=== PATIENT | male | born 1960 | race Caucasian/White ===

== ENCOUNTER 2020-04-16 19:27 | Emergency (ER) | payer OTHER ==
[~2020-04-16] VITALS: Ht 167.6 cm; Wt 61.2 kg
[~2020-04-16 19:27] MED LIST: AMOCLA875 PO; ASPI325; ASPI81CH; ASPI81CH PO; ASPI81EC PO; AZIT250 PO; CLOT1TC TOP; FISH OIL 1,2001 EAC1 PO; HYDACE5 PO; IBUP400 PO; IBUP600 PO; INDO25 PO; MONT10T PO; NAPR500 PO; NAPR550 PO; OXYACE5T PO; SERT50 PO; SIMV10 PO; SULTRIDS PO
== END 2020-04-16 21:45 | disposition home or self-care (01) ==
LOC: ER 19:27
DX: S61.012A Laceration without foreign body of left thumb without damage to nail, initial encounter (principal); I10 Essential (primary) hypertension; I25.2 Old myocardial infarction; M10.9 Gout, unspecified; F32.9 Major depressive disorder, single episode, unspecified; Z79.82 Long term (current) use of aspirin; Z86.73 Personal history of transient ischemic attack (TIA), and cerebral infarction without residual deficits; W57.XXXA Bitten or stung by nonvenomous insect and other nonvenomous arthropods, initial encounter
CPT/HCPCS: 12002; 99282-25

== ENCOUNTER → 2022-02-17 | Outpatient (CLI) | payer OTHER ==
[2022-02-17 14:14] LABS: Stool Occult Bld Immuno 1 Negative (NEGATIVE)
== END | disposition home or self-care (01) ==
LOC: LAB 10:30 → LAB SHORT 10:30
PROVIDERS: Family Medicine
DX: Z12.11 Encounter for screening for malignant neoplasm of colon (principal)
CPT/HCPCS: G0328

== ENCOUNTER 2023-01-17 23:26 | Emergency (ER) | payer OTHER ==
[~2023-01-17] VITALS: Ht 167.6 cm; Wt 64.4 kg
[2023-01-18] MEDS ORDERED: OXAYDO5 M1 PO (01:18)
[2023-01-18] MEDS ORDERED: IBUP800 PO (01:18)
== END 2023-01-18 01:38 | disposition home or self-care (01) ==
LOC: ER 23:26
DX: S22.42XA Multiple fractures of ribs, left side, initial encounter for closed fracture (principal); W18.30XA Fall on same level, unspecified, initial encounter; Z79.899 Other long term (current) drug therapy; Z79.82 Long term (current) use of aspirin; I25.2 Old myocardial infarction; M10.9 Gout, unspecified
CPT/HCPCS: 71101; 93005; 93010; 96374; 96375; 99284-25; A9270; J1170; J1885

== ENCOUNTER → 2023-06-16 | Outpatient (CLI) | payer OTHER ==
[~2023-06-16] MED LIST changes: +IBUP800 PO; +OXAYDO5 M1 PO
[2023-06-16 13:18] LABS: CHOL/HDL RATIO 1.8; Cholesterol 157 mg/dL (50-200); HDL Cholesterol 86 mg/dL (>39); LDL/HDL RATIO 0.6; Low Density Lipoprotein Chol 55 mg/dL (0-110); Triglycerides 78 mg/dL (30-160); Very Low Density Lipoprot Chol 15 mg/dL (6-32)
[2023-06-16 13:33] LABS: BASOPHILS ABSOLUTE AUTO 0.08 K/mm3 (0.00-0.23); BASOPHILS PERCENT AUTO 1 % (0-2); EOSINOPHILS ABSOLUTE AUTO 0.57 K/mm3 (0.00-0.68); EOSINOPHILS PERCENT AUTO 8 % (0-6); Hemoglobin 15.4 g/dL (13.5-17.5); IMMATURE GRAN ABSOLUTE AUTO 0.02 K/mm3 (0.00-0.10); IMMATURE GRAN PERCENT AUTO 0 % (0-1); LYMPHOCYTES ABSOLUTE AUTO 1.43 K/mm3 (0.84-5.20); LYMPHOCYTES PERCENT AUTO 20 % (21-46); MONOCYTES ABSOLUTE AUTO 0.63 K/mm3 (0.16-1.47); MONOCYTES PERCENT AUTO 9 % (4-13); Mean Corpuscular HGB 31.3 pg (26.0-34.0); Mean Corpuscular HGB Conc 33.5 g/dL (31.5-36.5); Mean Corpuscular Volume 94 fL (80-100); Mean Platelet Volume 11.4 fL (9.1-12.4); NEUTROPHILS ABSOLUTE AUTO 4.42 K/mm3 (1.96-9.15); NEUTROPHILS PERCENT AUTO 62 % (41-73); Platelet Count 115 K/mm3 (150-400); RDW Coefficient Variation 13.3 % (11.7-14.2); Red Blood Cell Count 4.92 M/mm3 (4.30-5.90); White Blood Cell Count 7.15 K/mm3 (4.00-11.30)
== END | disposition home or self-care (01) ==
LOC: LAB SHORT 09:48 → LAB 09:48
PROVIDERS: Family Medicine
DX: Z00.00 Encounter for general adult medical examination without abnormal findings (principal); Z12.5 Encounter for screening for malignant neoplasm of prostate
CPT/HCPCS: 80061; 83036; 85025; G0103

== ENCOUNTER → 2023-06-30 | Outpatient (CLI) | payer OTHER ==
[2023-06-30 17:39] LABS: Albumin, Blood 4.1 g/dL (3.4-5.0); Albumin/Globulin Ratio 1.1 (0.8-1.8); Bilirubin, Total 1.3 mg/dL (0.1-1.0); Bun/Creatinine Ratio 9.1 (12.0-20.0); Calcium, Blood 9.5 mg/dL (8.5-10.1); Creatinine, Blood 0.66 mg/dL (0.60-1.20); Globulin, Blood 3.7 g/dL (2.2-4.0); Potassium, Blood 4.5 mmol/L (3.5-5.5); Total Protein, Blood 7.8 g/dL (6.4-8.2)
== END | disposition home or self-care (01) ==
LOC: LAB 10:00 → LAB SHORT 10:00
PROVIDERS: Family Medicine
DX: Z00.00 Encounter for general adult medical examination without abnormal findings (principal)
CPT/HCPCS: 80053

== ENCOUNTER 2025-02-07 19:02 | Emergency (ER) | payer OTHER ==
[~2025-02-07] VITALS: Ht 167.6 cm; Wt 63.5 kg
[2025-02-07 19:50] LABS: BASOPHILS ABSOLUTE AUTO 0.05 K/mm3 (0.00-0.23); BASOPHILS PERCENT AUTO 1 % (0-2); EOSINOPHILS ABSOLUTE AUTO 0.23 K/mm3 (0.00-0.68); EOSINOPHILS PERCENT AUTO 2 % (0-6); Hematocrit 42.4 % (37.0-53.0); Hemoglobin 14.9 g/dL (13.5-17.5); IMMATURE GRAN PERCENT AUTO 1 % (0-1); LYMPHOCYTES ABSOLUTE AUTO 2.19 K/mm3 (0.84-5.20); LYMPHOCYTES PERCENT AUTO 21 % (21-46); MONOCYTES ABSOLUTE AUTO 1.05 K/mm3 (0.16-1.47); MONOCYTES PERCENT AUTO 10 % (4-13); Mean Corpuscular HGB 31.4 pg (26.0-34.0); Mean Corpuscular HGB Conc 35.1 g/dL (31.5-36.5); Mean Corpuscular Volume 89 fL (80-100); NEUTROPHILS PERCENT AUTO 65 % (41-73); RDW Coefficient Variation 13.8 % (11.7-14.2); RDW Standard Deviation 45.3 fL (35.1-46.3); Red Blood Cell Count 4.75 M/mm3 (4.30-5.90); White Blood Cell Count 10.42 K/mm3 (4.00-11.30)
[2025-02-07 20:00] LABS: Albumin, Blood 3.9 g/dL (3.4-5.0); Bilirubin, Total 2.9 mg/dL (0.1-1.0); Bun/Creatinine Ratio 28.3 (12.0-20.0); Calcium, Blood 9.2 mg/dL (8.5-10.1); Creatinine, Blood 0.67 mg/dL (0.60-1.20); Globulin, Blood 3.9 g/dL (2.2-4.0); Total Protein, Blood 7.8 g/dL (6.4-8.2)
[2025-02-07] MEDS ORDERED: Morphine Sulfate 4 MG/1 ML Injection IV ONE (20:45)
[2025-02-07] MEDS ORDERED: Ondansetron HCl 2 MG / ML 2ML Vial IV ONE (20:45)
[2025-02-07] MEDS ORDERED: Ketorolac Tromethamine 30mg Vial IV ONE (20:45)
[2025-02-07 21:30] VITALS: BP 125/77
[2025-02-07] MEDS ORDERED: LIDO700A20 TOP (21:31)
[2025-02-07] MEDS ORDERED: IBUP600 PO (21:31)
== END 2025-02-07 21:49 | disposition home or self-care (01) ==
LOC: ER 19:02
PROVIDERS: Physician Assistant
DX: M54.50 Low back pain, unspecified (principal); I10 Essential (primary) hypertension; E78.5 Hyperlipidemia, unspecified; I25.2 Old myocardial infarction; J44.9 Chronic obstructive pulmonary disease, unspecified; M19.90 Unspecified osteoarthritis, unspecified site; Z79.82 Long term (current) use of aspirin; Z79.899 Other long term (current) drug therapy
CPT/HCPCS: 71046; 80053; 85025; 93005; 93010; 96374; 96375; 99284-25; J1885; J2270; J2405

== ENCOUNTER 2025-03-22 13:29 | Inpatient (IN) | payer OTHER ==
[2025-03-22] VITALS (12 sets, daily range): BP systolic 117–156; BP diastolic 70–88
[~2025-03-22] VITALS: Ht 167.6 cm; Wt 63.5 kg
[~2025-03-22 13:29] MED LIST changes: +LIDO700A20 TOP
[2025-03-22] MEDS ORDERED: NS 1,000 ML IV SCH ×2 (14:15→17:35)
[2025-03-22] MEDS ORDERED: Ondansetron HCl 2 MG / ML 2ML Vial IV ONE (14:15)
[2025-03-22] MEDS ORDERED: Ipratropium/Albuterol SulF 2.5-0.5MG/3 ML Amp INH ONE (14:15)
[2025-03-22] MEDS ORDERED: HYDROmorphone HCl/Pf 1MG SYR IV ONE (14:15)
[2025-03-22 14:28] LABS: BASOPHILS ABSOLUTE AUTO 0.03 K/mm3 (0.00-0.23); BASOPHILS PERCENT AUTO 0 % (0-2); EOSINOPHILS ABSOLUTE AUTO 0.11 K/mm3 (0.00-0.68); EOSINOPHILS PERCENT AUTO 1 % (0-6); Hematocrit 44.8 % (37.0-53.0); Hemoglobin 15.7 g/dL (13.5-17.5); IMMATURE GRAN ABSOLUTE AUTO 0.06 K/mm3 (0.00-0.10); IMMATURE GRAN PERCENT AUTO 0 % (0-1); LYMPHOCYTES ABSOLUTE AUTO 1.16 K/mm3 (0.84-5.20); LYMPHOCYTES PERCENT AUTO 9 % (21-46); MONOCYTES ABSOLUTE AUTO 0.71 K/mm3 (0.16-1.47); MONOCYTES PERCENT AUTO 5 % (4-13); Mean Corpuscular HGB 30.7 pg (26.0-34.0); Mean Corpuscular Volume 88 fL (80-100); Mean Platelet Volume 10.1 fL (9.1-12.4); NEUTROPHILS ABSOLUTE AUTO 11.46 K/mm3 (1.96-9.15); NEUTROPHILS PERCENT AUTO 85 % (41-73); Platelet Count 207 K/mm3 (150-400); RDW Coefficient Variation 14.6 % (11.7-14.2); RDW Standard Deviation 47.5 fL (35.1-46.3); Red Blood Cell Count 5.11 M/mm3 (4.30-5.90); White Blood Cell Count 13.53 K/mm3 (4.00-11.30)
[2025-03-22 14:46] LABS: Albumin, Blood 3.4 g/dL (3.4-5.0); Albumin/Globulin Ratio 0.8 (0.8-1.8); Bilirubin, Total 1.5 mg/dL (0.1-1.0); Bun/Creatinine Ratio 24.2 (12.0-20.0); Calcium, Blood 9.6 mg/dL (8.5-10.1); Creatinine, Blood 0.7 mg/dL (0.60-1.20); Potassium, Blood 3.8 mmol/L (3.5-5.5); Total Protein, Blood 7.4 g/dL (6.4-8.2)
[2025-03-22] MEDS ORDERED: Piperacillin/Tazobactam Sod 3.375 GM in NS 100 ML IV ONE (15:15)
[2025-03-22] MEDS ORDERED: Bupivacaine 0.5% HCl 5 MG/ML 30MLVIAL ONE (16:53)
[2025-03-22] MEDS ORDERED: FentaNYL Citrate 50 MCG/ML 5 ML Injection ONE (17:01)
[2025-03-22] MEDS ORDERED: propofoL 20 ML IV ONE (17:01)
[2025-03-22] MEDS ORDERED: Oxymetazoline 0.05% Nasal Relief Spray 15mL BTL ONE (17:06)
[2025-03-22] MEDS ORDERED: Ondansetron 4 MG TAB PO PRN (17:35)
[2025-03-22] MEDS ORDERED: Ondansetron HCl 2 MG / ML 2ML Vial ONE (17:44)
[2025-03-22] MEDS ORDERED: Ondansetron HCl 2 MG / ML 2ML Vial IV PRN (18:05)
[2025-03-22] MEDS ORDERED: SuccINYLCHOLINE Chloride 100 MG/5 ML 5MLSYR ONE (18:18)
[2025-03-22] MEDS ORDERED: Lidocaine HCl 2% Jelly 120MG/6ML SYR (20MG PER ML) ONE (18:18)
[2025-03-22] MEDS ORDERED: Rocuronium Bromide 10 MG/ML 5ML Injection IV ONE (18:18)
[2025-03-22] MEDS ORDERED: Sugammadex Sodium 200 MG/2ML SDV (100 MG/ML) ONE ×2 (18:40→18:41)
[2025-03-22] MEDS ORDERED: Fluconazole 400MG/Iso-Sod 200M 200 ML IV ONE (19:30)
[2025-03-23] MEDS ORDERED: Piperacillin/Tazobactam Sod 3.375 GM in NS 100 ML IV SCH
[2025-03-23] MEDS ORDERED: HYDROmorphone HCl/Pf 1MG SYR IV PRN (02:45)
[2025-03-23] MEDS ORDERED: Naloxone HCl 0.4MG / ML 1ML Vial IV PRN (02:45)
[2025-03-23 04:16] VITALS: BP 120/75
--- NOTE | 2025-03-23 04:54 | NUR ---
SHIFT SUMMARY A/OX3, CALLS APPROPRIATELY. POD #1 ABD LAP FOR DUODENAL ULCER. O2 >92% ON 2L NC. DARBY PATENT AND DRAINING TO GRAVITY. TELE SR IN THE S. 4 LAP SITES TO ABD, IRA DRAINING. NG TO LIS. PRN DILAUDID GIVEN FOR PAIN. NO ACUTE CHANGES AT THIS TIME.
[2025-03-23 05:50] LABS: BASOPHILS ABSOLUTE AUTO 0.01 K/mm3 (0.00-0.23); BASOPHILS PERCENT AUTO 0 % (0-2); EOSINOPHILS PERCENT AUTO 0 % (0-6); Hematocrit 36.8 % (37.0-53.0); Hemoglobin 12.5 g/dL (13.5-17.5); IMMATURE GRAN ABSOLUTE AUTO 0.05 K/mm3 (0.00-0.10); IMMATURE GRAN PERCENT AUTO 1 % (0-1); LYMPHOCYTES ABSOLUTE AUTO 0.98 K/mm3 (0.84-5.20); LYMPHOCYTES PERCENT AUTO 10 % (21-46); MONOCYTES ABSOLUTE AUTO 0.97 K/mm3 (0.16-1.47); MONOCYTES PERCENT AUTO 10 % (4-13); Mean Corpuscular HGB 30.6 pg (26.0-34.0); Mean Corpuscular Volume 90 fL (80-100); Mean Platelet Volume 10.2 fL (9.1-12.4); NEUTROPHILS ABSOLUTE AUTO 7.79 K/mm3 (1.96-9.15); NEUTROPHILS PERCENT AUTO 80 % (41-73); Platelet Count 173 K/mm3 (150-400); RDW Standard Deviation 50.4 fL (35.1-46.3); Red Blood Cell Count 4.08 M/mm3 (4.30-5.90)
[2025-03-23] MEDS ORDERED: Pantoprazole Sodium 40 MG Injection IV SCH (06:00)
[2025-03-23 06:15] LABS: Albumin, Blood 2.4 g/dL (3.4-5.0); Albumin/Globulin Ratio 0.8 (0.8-1.8); Bilirubin, Total 1.7 mg/dL (0.1-1.0); Bun/Creatinine Ratio 20.2 (12.0-20.0); Creatinine, Blood 0.64 mg/dL (0.60-1.20); Globulin, Blood 3.2 g/dL (2.2-4.0); Potassium, Blood 3.9 mmol/L (3.5-5.5); Total Protein, Blood 5.6 g/dL (6.4-8.2)
[2025-03-23 07:26] VITALS: BP 116/65
[2025-03-23 07:38] VITALS: BP 153/96
[2025-03-23] MEDS ORDERED: Atorvastatin 10 MG Tab PO SCH (09:00)
[2025-03-23] MEDS ORDERED: Aspirin 81 MG Chew PO SCH (09:00)
[2025-03-23] MEDS ORDERED: Enoxaparin 40 MG/0.4 ML SYR SC SCH (09:00)
[2025-03-23 14:19] LABS: Hemoglobin 12.2 g/dL (13.5-17.5)
[2025-03-23 14:31] VITALS: BP 110/69
--- NOTE | 2025-03-23 17:12 | NUR ---
SHIFT SUMMARY PAIN CONTROLLED WELL. INCISION SITES WNL. IRA DRAIN COMPRESSED. DRESSING CHANGED. NG TUBE MODERATE DISCHARGE ON LIS, DARK OUTPUT. ENCOURAGED TO DEEP BREATH. ON 2L O2 NC. UP TO CHAIR FOR A FEW HOURS TODAY. DENIES PASSING GAS.
[2025-03-23] MEDS ORDERED: Fluconazole 100MG/Iso-Sod 50ML 50 ML IV SCH (18:00)
[2025-03-23 20:25] VITALS: BP 110/70
[2025-03-24] VITALS (7 sets, daily range): BP systolic 113–165; BP diastolic 59–85
--- NOTE | 2025-03-24 05:48 | NUR ---
SHIFT SUMMARY: NO ACUTE CHANGES DURING SHIFT. UPON SHIFT START, NG TUBE TAPE WAS DISLODGED AND PROVIDER ORDERED XRAY TO ASSESS PLACEMENT. PLACEMENT WAS VERIFIED AND SECUREMENT DEVICE PLACED. IRA DRAIN TO RIGHT ABDOMEN WITH MODERATE SEROUS OUTPUT. PT WITH DARBY CATHETER THAT IS PATENT, NG TUBE TO LIS WITH DARK OUTPUT. PRN DILAUDID GIVEN FOR PAIN. 4X LAP SITES CDI. PT REPORTS PASSING GAS.
[2025-03-24] MEDS ORDERED: DEXTROMETHORPHAN/BENZOCAINE 1 EACH LOZENGE MT PRN (08:15)
[2025-03-24] MEDS ORDERED: ATOR40TA PO (09:34)
[2025-03-24] MEDS ORDERED: LORA10ER PO (09:34)
[2025-03-24] MEDS ORDERED: TART CHERRY400 MG PO (09:35)
[2025-03-24] MEDS ORDERED: GILTUSS TR PO (09:36)
[2025-03-24] MEDS ORDERED: Aspir 8181 MG PO (09:36)
[2025-03-24] MEDS ORDERED: FISH OIL 1,4001 EAC2 PO (09:38)
[2025-03-24] MEDS ORDERED: 8 HOUR ACETAMI650 MG PO (09:38)
[2025-03-24 11:14] LABS: Magnesium, Blood 1.8 mg/dL (1.6-2.4); Phosphorus, Blood 2.4 mg/dL (2.5-4.9)
[2025-03-24] MEDS ORDERED: TPN Consult Notification XX ONE (11:35)
[2025-03-24 15:43] LABS: Albumin, Blood 2.2 g/dL (3.4-5.0); Albumin/Globulin Ratio 0.6 (0.8-1.8); Bilirubin, Total 1.5 mg/dL (0.1-1.0); Bun/Creatinine Ratio 31.1 (12.0-20.0); Calcium, Blood 8.5 mg/dL (8.5-10.1); Creatinine, Blood 0.61 mg/dL (0.60-1.20); Globulin, Blood 3.4 g/dL (2.2-4.0); Potassium, Blood 3.7 mmol/L (3.5-5.5); Total Protein, Blood 5.6 g/dL (6.4-8.2)
[2025-03-24 15:48] LABS: BASOPHILS ABSOLUTE AUTO 0.04 K/mm3 (0.00-0.23); BASOPHILS PERCENT AUTO 0 % (0-2); EOSINOPHILS ABSOLUTE AUTO 0.04 K/mm3 (0.00-0.68); EOSINOPHILS PERCENT AUTO 0 % (0-6); Hematocrit 32.8 % (37.0-53.0); Hemoglobin 10.7 g/dL (13.5-17.5); IMMATURE GRAN ABSOLUTE AUTO 0.05 K/mm3 (0.00-0.10); IMMATURE GRAN PERCENT AUTO 1 % (0-1); LYMPHOCYTES ABSOLUTE AUTO 1.05 K/mm3 (0.84-5.20); LYMPHOCYTES PERCENT AUTO 12 % (21-46); MONOCYTES ABSOLUTE AUTO 0.87 K/mm3 (0.16-1.47); MONOCYTES PERCENT AUTO 10 % (4-13); Mean Corpuscular HGB 30.6 pg (26.0-34.0); Mean Corpuscular HGB Conc 32.6 g/dL (31.5-36.5); Mean Corpuscular Volume 94 fL (80-100); Mean Platelet Volume 10.9 fL (9.1-12.4); NEUTROPHILS ABSOLUTE AUTO 7.03 K/mm3 (1.96-9.15); NEUTROPHILS PERCENT AUTO 77 % (41-73); Platelet Count 164 K/mm3 (150-400); RDW Coefficient Variation 15.1 % (11.7-14.2); RDW Standard Deviation 52.6 fL (35.1-46.3); White Blood Cell Count 9.08 K/mm3 (4.00-11.30)
[2025-03-24] MEDS ORDERED: Parenteral Electolytes 40 ML,Multivitamins 10 ML,ZINC SULF/CUSO4 P-HYD/MN/CR/SE 1 ML in... IV SCH (17:00)
--- NOTE | 2025-03-24 17:51 | NUR ---
SHIFT SUMMARY PAIN CONTROLLED WELL. NG TUBE, DARK BROWN w/RED TINGE OUTPUT. IRA DRAIN w/SS OUTPUT. UP TO CHAIR FOR A FEW HOURS TODAY. ABLE TO URINATE AFTER DARBY REMOVED. ON 1L O2 NC w/CONTINOUS PULSE OX MONITORING. INCISION SITES WNL. ABDOMEN SOFT, PASSING GAS, DENIES NAUSEA. PPN STARTED. CURRENTLY RESTING IN BED.
--- NOTE | 2025-03-24 18:32 | NUR ---
CHANGE IN STATUS PT FOUND TO HAVE BRIGHT RED BLOOD IN NGT BUT ONLY SCANT IN TUBING. ABD SOFT & PT DOESN'T REPORT INCREASE IN ABD PAIN. IRA FLUID STILL YELLOW. DR CARDOSO CALLED & DISCUSSED. PLAN TO HOLD CEPACOL RED LOZENGES & MONITOR CLOSELY. CALL w/ ANY CHANGES OR CONCERNS.
--- NOTE | 2025-03-24 19:25 | NUR ---
CONTINUED CHANGE IN STATUS 100 MLS OF RED FLUID INCREASE IN CANISTER & FOUND IN TUBING. PT BEGAN DRY HEAVING & BECAME DIAPHORETIC. ABD NOW TENDER BUT SOFT. IRA UNCHANGED. DR CARDOSO NOTIFIED & WILL PLACE ORDERS.
[2025-03-24] MEDS ORDERED: Lactated Ringer's 1,000 ML IV ONE (19:30)
--- NOTE | 2025-03-24 19:53 | NUR ---
1944: LAB AT BEDSIDE TO DRAW STAT LABS. 1953: TO IMAGING WITH RADIOLOGY STAFF ON [facility]. PER DR WALKER DUNAWAY TO GO WITH SUCTION CLAMPED TO NG TUBE.
[2025-03-24 20:13] LABS: Hematocrit 32.8 % (37.0-53.0); Hemoglobin 10.8 g/dL (13.5-17.5); Mean Corpuscular HGB 30.5 pg (26.0-34.0); Mean Corpuscular HGB Conc 32.9 g/dL (31.5-36.5); Mean Corpuscular Volume 93 fL (80-100); Mean Platelet Volume 10.1 fL (9.1-12.4); Platelet Count 268 K/mm3 (150-400); RDW Coefficient Variation 14.9 % (11.7-14.2); RDW Standard Deviation 50.8 fL (35.1-46.3); Red Blood Cell Count 3.54 M/mm3 (4.30-5.90); White Blood Cell Count 10.88 K/mm3 (4.00-11.30)
[2025-03-24 20:31] LABS: Albumin, Blood 2.2 g/dL (3.4-5.0); Albumin/Globulin Ratio 0.6 (0.8-1.8); Bilirubin, Total 1.4 mg/dL (0.1-1.0); Bun/Creatinine Ratio 32.5 (12.0-20.0); Calcium, Blood 8.9 mg/dL (8.5-10.1); Creatinine, Blood 0.52 mg/dL (0.60-1.20); Globulin, Blood 3.6 g/dL (2.2-4.0); Potassium, Blood 3.4 mmol/L (3.5-5.5); Total Protein, Blood 5.8 g/dL (6.4-8.2)
[2025-03-24 20:36] LABS: International Normalized Ratio 0.97; Prothrombin Time Results 10.4 Sec (9.7-11.5)
--- NOTE | 2025-03-24 20:48 | NUR ---
CAPO RN AT BEDSIDE TO PLACE MIDLINE
--- NOTE | 2025-03-24 20:53 | NUR ---
DR CARDOSO CALLED TO REVIEW CT SCAN AND FOR UPDATE ON PT STATUS. NGT FLUSHED W/60ML STERILE WATER AND ADVANCED APPX [address] CARDOSO REQ. NGT CONT TO DRAIN THICK DARK RED DNRG. PT VS, LABS, OUTPUT AND MEDS REV. PLAN FOR NEW ORDER FOR COMPAZINE AND TO CONT W/CURRENT TX PLAN. PRIMARY RN UPDATED.
[2025-03-24] MEDS ORDERED: Prochlorperazine Edisylate 10 mg Vial IV PRN (21:25)
[2025-03-25] VITALS (10 sets, daily range): BP systolic 123–161; BP diastolic 67–78
[2025-03-25 00:29] LABS: Hematocrit 25.1 % (37.0-53.0); Hemoglobin 8.2 g/dL (13.5-17.5)
--- NOTE | 2025-03-25 00:49 | NUR ---
LABS: DR CARDOSO UPDATED ON PT H&H AND VITALS. PLAN TO CONT W/CURRENT TX PLAN AND UPDATE FOR ANY CHANGES/CONCERNS.
--- NOTE | 2025-03-25 01:41 | NUR ---
PT SLEEPING WITH UNLABORED BREATHING; CALL LIGHT WITHIN REACH.
--- NOTE | 2025-03-25 04:30 | NUR ---
RN TO ROOM; PT SLEEPING ON LEFT SIDE WITH EQUAL, UNLABORED BREATHING. CALL LIGHT WITHIN REACH.
[2025-03-25 05:04] LABS: BASOPHILS ABSOLUTE AUTO 0.01 K/mm3 (0.00-0.23); BASOPHILS PERCENT AUTO 0 % (0-2); EOSINOPHILS ABSOLUTE AUTO 0.01 K/mm3 (0.00-0.68); EOSINOPHILS PERCENT AUTO 0 % (0-6); Hematocrit 23.9 % (37.0-53.0); Hemoglobin 7.9 g/dL (13.5-17.5); IMMATURE GRAN ABSOLUTE AUTO 0.07 K/mm3 (0.00-0.10); IMMATURE GRAN PERCENT AUTO 1 % (0-1); LYMPHOCYTES ABSOLUTE AUTO 0.77 K/mm3 (0.84-5.20); LYMPHOCYTES PERCENT AUTO 8 % (21-46); MONOCYTES ABSOLUTE AUTO 0.71 K/mm3 (0.16-1.47); MONOCYTES PERCENT AUTO 7 % (4-13); Mean Corpuscular HGB 30.6 pg (26.0-34.0); Mean Corpuscular HGB Conc 33.1 g/dL (31.5-36.5); Mean Corpuscular Volume 93 fL (80-100); Mean Platelet Volume 9.4 fL (9.1-12.4); NEUTROPHILS ABSOLUTE AUTO 8.18 K/mm3 (1.96-9.15); NEUTROPHILS PERCENT AUTO 84 % (41-73); Platelet Count 254 K/mm3 (150-400); RDW Coefficient Variation 14.5 % (11.7-14.2); RDW Standard Deviation 49.1 fL (35.1-46.3); Red Blood Cell Count 2.58 M/mm3 (4.30-5.90); White Blood Cell Count 9.75 K/mm3 (4.00-11.30)
[2025-03-25 05:17] LABS: Magnesium, Blood 1.6 mg/dL (1.6-2.4); Triglycerides 114 mg/dL (30-160)
--- NOTE | 2025-03-25 05:39 | NUR ---
SHIFT SUMMARY: PT WITH INCREASED OUTPUT FROM NG TUBE THROUGHOUT SHIFT. OUTPUT IS DARK RED. DR CARDOSO IS AWARE, STAT CT COMPLETED, NG TUBE ADVANCED AND SECURED, LR BOLUS COMPLETED. POWERGLIDE PLACED TO WALLY. NEW 20G IV PLACED TO RIGHT WRIST. RIGHT HAND WITH SOME EDEMA, COBAN REMOVED FROM WRIST; RADIAL PULSE FELT. LAP SITES TO ABDOMEN WITH GLUE REMAIN CDI, IRA SITE LEAKING WITH MULTIPLE DRESSING CHANGES. NG TUBE TO LIS WITH NO VENT PER SURGERY; POSITIONAL AND LEAKING CAN OCCUR. FULL GOWN AND LINEN CHANGE DURING SHIFT. PT WITH Q6 HOUR GLUCOSE CHECKS; NO HYPOGLYCEMIA RESULTS DURING NOC SHIFT. PT MEDICATED FOR NAUSEA AND PAIN PER ORDERS DURING SHIFT. PT WITH EPISODES OF DIAPHORESIS. PT PPN STARTED 03/24/2025 DURING DAY SHIFT. PT VOIDING WITH URINAL.
[2025-03-25] MEDS ORDERED: NS 500 ML IV SCH (08:05)
[2025-03-25 08:50] LABS: International Normalized Ratio 0.96; Prothrombin Time Results 10.3 Sec (9.7-11.5)
[2025-03-25] MEDS ORDERED: Ipratropium/Albuterol SulF 2.5-0.5MG/3 ML Amp INH PRN (11:30)
[2025-03-25] MEDS ORDERED: Pantoprazole Sodium 40 MG in NS 50 ML IV SCH (15:25)
--- NOTE | 2025-03-25 15:25 | NUR ---
DR. ANTOINE IN ROOM AT 1050 AND PT SIGNED BLOOD CONSENT. BLOOD TRANSFUSION STARTED AT ABOUT 1110, SEE CHARTING
--- NOTE | 2025-03-25 15:27 | NUR ---
EMESIS: AT ABOUT 1300, PT VOMITED 200ML OF MAROON COLORED BLOOD, NO CLOTS NOTED. DR. ANTOINE AND DR. GONZALEZ NOTIFIED. THIS RN FLUSHED NGT WITH 50ML OF WATER AND FLUSHED SUMP LUMEN WITH AIR PER ORDER. MORE DARK BLOOD OUTPUT FROM NGT AFTER FLUSHING AND PT REPORTED LESS NAUSEATED. PT ALSO MEDICATED FOR NAUSEA AND PAIN DURING THIS TIME. NGT IS SECURE AND REMAINS ON LIS
--- NOTE | 2025-03-25 15:44 | NUR ---
REPORT PASSED TO LUIS RUFF. BEDSIDE ROUNDING AND BLOOD TRANSFUSION COMPLETE AT ABOUT 1510. PT TOLERATED WELL.
[2025-03-25 15:48] LABS: Albumin/Globulin Ratio 0.7 (0.8-1.8); Bilirubin, Total 1.3 mg/dL (0.1-1.0); Bun/Creatinine Ratio 24.7 (12.0-20.0); Calcium, Blood 8.4 mg/dL (8.5-10.1); Creatinine, Blood 0.53 mg/dL (0.60-1.20); Potassium, Blood 3.2 mmol/L (3.5-5.5)
[2025-03-25 16:50] LABS: Hematocrit 26.2 % (37.0-53.0); Hemoglobin 9.1 g/dL (13.5-17.5)
--- NOTE | 2025-03-25 17:30 | NUR ---
SHIFT SUMMARY THIS RN ASSUMED CARE AT APPROX 1530. PATIENT ALERT AND ORIENTED X4. COMMUNICATES NEEDS EFFECTIVELY. VSS. POD 3 ROBOTIC LAP DIAGNOSTIC FOR SMALL BOWEL PERF. ON 1L VIA NC, SATs >90%. RECEIVING PRN BREATHING TREATMENTS FROM RT FOR EPISODES OF WHEEZING. CONTINUOUS PULSE OX IN PLACE. NG TUBE IN PLACE W/ THICK DARK RED OUTPUT TO LIS. NO FURTHER EPISODES OF EMESIS (SEE SOO RNs PREVIOUS NOTE). IRA DRAIN TO RLQ WITH YELLOW DRAINAGE. X3 LAP SITES C/D/I. ABD DISTENDED, SOFT. TENDER TO PALPATION. TPN INFUSING PER EMAR. PROTONIX GTT STARTED THIS EVENING. RECEIVED X1 UNIT OF PRBCs - HGB STABLE AT 9.1. VOIDING. CALL LIGHT IN REACH.
[2025-03-26] VITALS (13 sets, daily range): BP systolic 112–190; BP diastolic 66–101
--- NOTE | 2025-03-26 01:30 | NUR ---
TELEMETRY EVENT. THIS RN RECEIVED T/C FROM TELEMETRY THAT PT HAD A HEART RATE OF 150 BPM. THIS RN WAS WITH ANOTHER PATIENT. SUGAR CANE PLANTER MACHINE OPERATOR LIZZ NIETO WENT TO ASSESS PATIENT, SUGAR CANE PLANTER MACHINE OPERATOR REPORTED BACK TO THIS RN THAT PT ASYMPTOMATIC AND VSS.
--- NOTE | 2025-03-26 04:39 | NUR ---
SHIFT SUMMARY NOC. PT A/OX4, LAP SITES C/D/I, IRA DRAIN PRODUCING YELLOW DRAINAGE, EXTERIOR DRESSING CHANGED THIS SHIFT. PT MEDICATED FOR ABDOMINAL PAIN X1. NG TUBE PATENT AND PRODUCING DARK RED OUTPUT. PT VOIDING URINE. PT MAKES NEEDS KNOWN, CALL LIGHT IN REACH.
[2025-03-26 06:35] LABS: Bun/Creatinine Ratio 27.1 (12.0-20.0); Calcium, Blood 8.2 mg/dL (8.5-10.1); Creatinine, Blood 0.55 mg/dL (0.60-1.20); Magnesium, Blood 1.7 mg/dL (1.6-2.4); Phosphorus, Blood 2.2 mg/dL (2.5-4.9); Potassium, Blood 2.9 mmol/L (3.5-5.5)
[2025-03-26 08:15] LABS: BASOPHILS ABSOLUTE AUTO 0.01 K/mm3 (0.00-0.23); BASOPHILS PERCENT AUTO 0 % (0-2); EOSINOPHILS ABSOLUTE AUTO 0.42 K/mm3 (0.00-0.68); EOSINOPHILS PERCENT AUTO 6 % (0-6); Hemoglobin 7.5 g/dL (13.5-17.5); IMMATURE GRAN ABSOLUTE AUTO 0.04 K/mm3 (0.00-0.10); IMMATURE GRAN PERCENT AUTO 1 % (0-1); LYMPHOCYTES ABSOLUTE AUTO 1.25 K/mm3 (0.84-5.20); LYMPHOCYTES PERCENT AUTO 17 % (21-46); MONOCYTES PERCENT AUTO 13 % (4-13); Mean Corpuscular HGB 30.5 pg (26.0-34.0); Mean Corpuscular HGB Conc 34.1 g/dL (31.5-36.5); Mean Corpuscular Volume 89 fL (80-100); Mean Platelet Volume 10.9 fL (9.1-12.4); NEUTROPHILS ABSOLUTE AUTO 4.75 K/mm3 (1.96-9.15); NEUTROPHILS PERCENT AUTO 64 % (41-73); Platelet Count 223 K/mm3 (150-400); RDW Coefficient Variation 14.5 % (11.7-14.2); RDW Standard Deviation 47.5 fL (35.1-46.3); Red Blood Cell Count 2.46 M/mm3 (4.30-5.90); White Blood Cell Count 7.47 K/mm3 (4.00-11.30)
[2025-03-26] MEDS ORDERED: NS 250 ML IV PRN (12:05)
[2025-03-26] MEDS ORDERED: Potassium Phosphate Dibasic 30 MM in Dextrose 5% 500 ML IV STA (12:17)
--- NOTE | 2025-03-26 13:38 | NUR ---
UNABLE TO LOCATE RADIAL BP CUFF. PT UP TO CHAIR AFTER BED BATH. USED URINAL. PT DENIES ANY BLOOD TRANSFUSION REACTION S/S. TOLERATING WELL. LUNG SOUNDS REMAIN WHEEZY. CALL LIGHT WITHIN REACH. CURRENTLY ATTEMPTING TO LOCATE RADIAL CUFF TO ACCURATELY ASSESS BP.
--- NOTE | 2025-03-26 15:26 | NUR ---
AGREE WITH METAL FURNITURE REPAIRER SHIFT ASSESSMENT.
[2025-03-26] MEDS ORDERED: [UNRECOGNIZED DRUG - NUTRITION] IV SCH (17:00)
--- NOTE | 2025-03-26 17:10 | NUR ---
SHIFT SUMMARY NO ACUTE CHANGES. PT RECIEVED ONE UNIT OF PRBCS AND JASON WELL. NGT TO LIS WITH DARK BROWN DRAINAGE IN CANISTER. IRA DRAIN DRESSING CHANGED X1 AND HAS SEROUS OUTPUT. PT UP TO CHAIR WITH 1 MODERATE ASSIST FOR CORD MANAGEMENT. VSS AND IS ALERT AND OREINTED. LAP SITES C/D/I. USING URINAL TO VOID. PPN, PROTONIX, IV ABX INFUSING PER ORDERS. NO TELE EVENTS AND REMAINS IN NSR. USES CALL LIGHT APPROPRIATELY.
--- NOTE | 2025-03-27 00:05 | NUR ---
PHYSICIAN CONTACT PT WITH 700 ML OF DARK SANGINOUS OUTPUT, SECURITY OFFICERS AND GUARDS PROVIDER NOTIFIED. NEW ORDERS FOR REPEAT H&H PLACED.
[2025-03-27 00:34] VITALS: BP 161/86
[2025-03-27 00:55] LABS: Hematocrit 26.3 % (37.0-53.0); Hemoglobin 9.2 g/dL (13.5-17.5)
[2025-03-27 04:32] VITALS: BP 170/94
[2025-03-27 05:27] LABS: Hematocrit 26.1 % (37.0-53.0); Hemoglobin 9.1 g/dL (13.5-17.5); Mean Corpuscular HGB 29.8 pg (26.0-34.0); Mean Corpuscular HGB Conc 34.9 g/dL (31.5-36.5); Mean Corpuscular Volume 86 fL (80-100); Mean Platelet Volume 9.4 fL (9.1-12.4); Platelet Count 350 K/mm3 (150-400); RDW Coefficient Variation 15.7 % (11.7-14.2); RDW Standard Deviation 48.5 fL (35.1-46.3); Red Blood Cell Count 3.05 M/mm3 (4.30-5.90); White Blood Cell Count 11.46 K/mm3 (4.00-11.30)
[2025-03-27 05:52] LABS: Albumin, Blood 2.1 g/dL (3.4-5.0); Albumin/Globulin Ratio 0.6 (0.8-1.8); Bilirubin, Total 0.7 mg/dL (0.1-1.0); Calcium, Blood 7.9 mg/dL (8.5-10.1); Creatinine, Blood 0.49 mg/dL (0.60-1.20); Globulin, Blood 3.5 g/dL (2.2-4.0); Magnesium, Blood 1.6 mg/dL (1.6-2.4); Phosphorus, Blood 3.8 mg/dL (2.5-4.9); Total Protein, Blood 5.6 g/dL (6.4-8.2)
[2025-03-27 06:03] LABS: BASOPHILS PERCENT MAN 0 % (0-2); EOSINOPHILS ABSOLUTE MAN 1.26 K/mm3 (0.00-0.68); EOSINOPHILS PERCENT MAN 11 % (0-6); LYMPHOCYTES PERCENT MAN 14 % (21-46); METAMYELOCYTE ABSOLUTE MAN 0.11 K/mm3 (0.00-0.00); METAMYELOCYTE PERCENT MAN 1 % (0-0); MONOCYTES ABSOLUTE MAN 0.68 K/mm3 (0.16-1.47); MONOCYTES PERCENT MAN 6 % (4-13); NEUTROPHILS ABSOLUTE MAN 7.79 K/mm3 (1.96-9.15); SEG NEUTROPHILS PERCENT MAN 68 % (41-73); TOTAL CELLS COUNTED 100
--- NOTE | 2025-03-27 06:37 | NUR ---
SHIFT SUMMARY A/OX3, CALLS APPROPRIATELY. NG TO LIS WITH 1100 ML OF DARK RED OUTPUT. HGB OF 9.1 THIS AM. IRA TO RLQ. DENIES PAIN OR SOB. CONTINUES TO BE HYPERTENSIVE. PROTONIX GTT RUNNING.
[2025-03-27 07:35] VITALS: BP 138/77
[2025-03-27] MEDS ORDERED: Potassium Chl 20MEQ/Water100ML 100 ML IV SCH (09:20)
[2025-03-27] MEDS ORDERED: TPN Consult Notification XX ONE (14:10)
[2025-03-27 15:07] VITALS: BP 154/90
[2025-03-27] MEDS ORDERED: Parenteral Electolytes 40 ML,Potassium Phosphate Dibasic 30 MM,Multivitamins 10 ML,ZINC... IV SCH (17:00)
--- NOTE | 2025-03-27 17:44 | NUR ---
PT ALERT AND ORIENTED X4, RA, SR IN 90S ON TELE. VERY LITTLE OUTPUT FROM NG TUBE T/O SHIFT, ONE EPISODE OF EMESIS PT STATED FROM COUGHING AND GAGGING ON NG TUBE. SEVERAL LOOSE BLACK BMS THIS SHIFT, AWARE. 1PA TO BATHROOM OR BSC D/T LINES. NG TUBE REMOVED AT 1730 PER ORDER, PT TOLERATED WELL. DIET ADVANCED TO CLEAR LIQUID DIET. PT CALLS APPROPRIATELY AND ABLE TO MAKE NEEDS KNOWN.
[2025-03-27 19:36] VITALS: BP 143/77
--- NOTE | 2025-03-28 04:47 | NUR ---
MIMEOGRAPHER SUMMARY PT AAOX4 AND PLEASANT. HAS DENIED PAIN MOST OF THE NIGHT AND HAS NOT REQUIRED ANY PAIN MEDICATION. HAD A VERY LARGE LIQUID BM AT START OF SHIFT, MAROON/BROWN IN COLOR. IRA DRAIN TO [facility] PUT OUT 10 ML OF YELLOW DRAINAGE. DRESSING TO IRA DRAIN CHANGED. PT CONTINUES IV TPN AND PROTONIX DRIP ORDERED. MEDICATED ONCE FOR NAUSEA WITH ZOFRAN RIGHT AFTER PT HAD LARGE BM BUT HAS DENIED NAUSEA SINCE. VSS, WILL CONTINUE TO MONITOR.
[2025-03-28 05:48] VITALS: BP 161/84
[2025-03-28 06:28] LABS: BASOPHILS ABSOLUTE AUTO 0.04 K/mm3 (0.00-0.23); BASOPHILS PERCENT AUTO 0 % (0-2); EOSINOPHILS PERCENT AUTO 9 % (0-6); Hematocrit 27.1 % (37.0-53.0); Hemoglobin 9.1 g/dL (13.5-17.5); IMMATURE GRAN ABSOLUTE AUTO 0.15 K/mm3 (0.00-0.10); IMMATURE GRAN PERCENT AUTO 1 % (0-1); LYMPHOCYTES ABSOLUTE AUTO 1.98 K/mm3 (0.84-5.20); LYMPHOCYTES PERCENT AUTO 15 % (21-46); MONOCYTES ABSOLUTE AUTO 1.19 K/mm3 (0.16-1.47); MONOCYTES PERCENT AUTO 9 % (4-13); Mean Corpuscular HGB 29.9 pg (26.0-34.0); Mean Corpuscular HGB Conc 33.6 g/dL (31.5-36.5); Mean Corpuscular Volume 89 fL (80-100); Mean Platelet Volume 9.5 fL (9.1-12.4); NEUTROPHILS ABSOLUTE AUTO 9.09 K/mm3 (1.96-9.15); NEUTROPHILS PERCENT AUTO 67 % (41-73); Platelet Count 463 K/mm3 (150-400); RDW Coefficient Variation 15.9 % (11.7-14.2); RDW Standard Deviation 51.6 fL (35.1-46.3); Red Blood Cell Count 3.04 M/mm3 (4.30-5.90); White Blood Cell Count 13.65 K/mm3 (4.00-11.30)
[2025-03-28 06:43] LABS: Bun/Creatinine Ratio 32.1 (12.0-20.0); Calcium, Blood 8.3 mg/dL (8.5-10.1); Creatinine, Blood 0.56 mg/dL (0.60-1.20); Magnesium, Blood 1.9 mg/dL (1.6-2.4); Potassium, Blood 3.9 mmol/L (3.5-5.5)
[2025-03-28 07:27] VITALS: BP 149/78
[2025-03-28 14:24] VITALS: BP 161/86
--- NOTE | 2025-03-28 14:39 | NUR ---
IRA DRAIN DRESSING CHANGED.
[2025-03-28] MEDS ORDERED: Pantoprazole Sodium 40 MG Injection IV SCH (16:30)
--- NOTE | 2025-03-28 19:29 | NUR ---
SHIFT SUMMARY PT IS POD#6. PT HAD MULTIPLE LIQUID BOWEL MOVEMENTS TODAY. HE IS TOLERATING SMALL AMOUNTS OF CLEAR LIQUIDS. PT IS A SBA FOR TRANSFERS. PT IS STILL GETTING PARENTERAL NUTRITION. BEDSIDE REPORT GIVEN TO SURINDER SMITH.
[2025-03-28 20:05] VITALS: BP 162/80
[2025-03-29] VITALS (13 sets, daily range): BP systolic 128–148; BP diastolic 59–83
[2025-03-29 05:49] LABS: BASOPHILS ABSOLUTE AUTO 0.06 K/mm3 (0.00-0.23); BASOPHILS PERCENT AUTO 1 % (0-2); EOSINOPHILS ABSOLUTE AUTO 1.18 K/mm3 (0.00-0.68); EOSINOPHILS PERCENT AUTO 9 % (0-6); Hematocrit 25.2 % (37.0-53.0); Hemoglobin 8.5 g/dL (13.5-17.5); IMMATURE GRAN ABSOLUTE AUTO 0.17 K/mm3 (0.00-0.10); IMMATURE GRAN PERCENT AUTO 1 % (0-1); LYMPHOCYTES ABSOLUTE AUTO 2.11 K/mm3 (0.84-5.20); LYMPHOCYTES PERCENT AUTO 16 % (21-46); MONOCYTES PERCENT AUTO 9 % (4-13); Mean Corpuscular HGB 30.4 pg (26.0-34.0); Mean Corpuscular HGB Conc 33.7 g/dL (31.5-36.5); Mean Corpuscular Volume 90 fL (80-100); Mean Platelet Volume 9.6 fL (9.1-12.4); NEUTROPHILS ABSOLUTE AUTO 8.46 K/mm3 (1.96-9.15); NEUTROPHILS PERCENT AUTO 64 % (41-73); Platelet Count 548 K/mm3 (150-400); RDW Coefficient Variation 15.7 % (11.7-14.2); White Blood Cell Count 13.18 K/mm3 (4.00-11.30)
[2025-03-29 06:04] LABS: Bun/Creatinine Ratio 25.8 (12.0-20.0); Calcium, Blood 8.3 mg/dL (8.5-10.1); Creatinine, Blood 0.58 mg/dL (0.60-1.20); Magnesium, Blood 1.7 mg/dL (1.6-2.4); Phosphorus, Blood 3.4 mg/dL (2.5-4.9); Potassium, Blood 4.2 mmol/L (3.5-5.5)
--- NOTE | 2025-03-29 06:22 | NUR ---
NOC SUMMARY- PAIN MANAGED WELL. PT WAS ABLE TO SLEEP WELL THIS SHIFT. PT HAS BEEN VOIDING WELL. PT HAD LIQUID BM THIS AM, DARK GREEN. PT IRA DRAINING SEROUS FLUID. IRA SITE STILL WEEPING, DRESSING CHANGED THIS AM. PT HAD A EPISODE OF N/V. PT VOMITED UP 25 ML OF ANGELITA BLOOD. PT DENIES HAVING ANY PREVIOUS EPISODES OF ANGELITA BLOOD. PT TX FOR N/V PER MAR WITH RELIEF. NO TELE EVENTS REPORTED. PT RESTING QUIETLY AND IN NO DISTRESS. CALL LIGHT IN REACH.
[2025-03-29 12:07] LABS: Hematocrit 22.6 % (37.0-53.0); Hemoglobin 7.5 g/dL (13.5-17.5)
--- NOTE | 2025-03-29 17:32 | NUR ---
SHIFT SUMMARY PT IS A/Ox4. HAS BEEN ABLE TO MAKE NEEDS KNOWN WITH CALL LIGHT T/O SHIFT. PT HAS HAD MULTIPLE LIQUID BOWEL MOVEMENTS THAT ARE MAROON IN COLOR. DR. ARANGO WAS NOTIFIED AND AN ABD CT WAS ORDERED, CT CAME BACK CLEAR. HEMOGLOBIN DROPPED TO 7.5, DR. ARANGO ORDERED 1 UNIT OF PACKED RBCS WHICH IS CURRENTLY INFUSING. PT IS RESTING IN BED, BED IS IN LOWEST POSITION AND CALL LIGHT IS IN REACH. REPORTS NO ACUTE NEEDS AT THIS TIME.
--- NOTE | 2025-03-29 17:42 | NUR ---
PLEASE SEE STUDENT NOTES FOR SHIFT SUMMARY THIS PACKAGING SALES HAS REVIEWED AND AGREES.
--- NOTE | 2025-03-29 18:09 | NUR ---
IRA DRESSING CHANGED AT 1805. DRESSING WAS SATURATED WITH SEROUS FLUID.
[2025-03-29 23:13] LABS: Hematocrit 22.9 % (37.0-53.0); Hemoglobin 7.8 g/dL (13.5-17.5)
[2025-03-30 04:41] VITALS: BP 126/63
[2025-03-30 05:13] LABS: BASOPHILS ABSOLUTE AUTO 0.05 K/mm3 (0.00-0.23); BASOPHILS PERCENT AUTO 0 % (0-2); EOSINOPHILS ABSOLUTE AUTO 1.01 K/mm3 (0.00-0.68); EOSINOPHILS PERCENT AUTO 9 % (0-6); Hematocrit 23.2 % (37.0-53.0); Hemoglobin 7.9 g/dL (13.5-17.5); IMMATURE GRAN ABSOLUTE AUTO 0.18 K/mm3 (0.00-0.10); IMMATURE GRAN PERCENT AUTO 2 % (0-1); LYMPHOCYTES ABSOLUTE AUTO 1.88 K/mm3 (0.84-5.20); LYMPHOCYTES PERCENT AUTO 16 % (21-46); MONOCYTES ABSOLUTE AUTO 0.91 K/mm3 (0.16-1.47); MONOCYTES PERCENT AUTO 8 % (4-13); Mean Corpuscular HGB 30.2 pg (26.0-34.0); Mean Corpuscular HGB Conc 34.1 g/dL (31.5-36.5); Mean Corpuscular Volume 89 fL (80-100); Mean Platelet Volume 9.4 fL (9.1-12.4); NEUTROPHILS ABSOLUTE AUTO 7.43 K/mm3 (1.96-9.15); NEUTROPHILS PERCENT AUTO 65 % (41-73); Platelet Count 492 K/mm3 (150-400); RDW Coefficient Variation 15.9 % (11.7-14.2); RDW Standard Deviation 51.7 fL (35.1-46.3); Red Blood Cell Count 2.62 M/mm3 (4.30-5.90); White Blood Cell Count 11.46 K/mm3 (4.00-11.30)
--- NOTE | 2025-03-30 05:27 | NUR ---
METAL EXTRUSION SUPERVISOR SUMMARY PT HAS HAD 2 ADDITIONAL MAROON LIQUID STOOLS TONIGHT. NO NAUSEA OR VOMITING TONIGHT. HGB AFTER BLOOD TRANSFUSION WAS 7.8 AND THEN INCREASED TO 7.9 WITH MORNING LABS. RUQ IRA DRAIN CONTINUES TO OUTPUT SMALL JOE OF SEROUS DRAINAGE. PT MEDICATED TWICE WITH DILAUDID 1 MG IV FOR ABD PAIN. PT HAS BEEN ON ROOM AIR THROUGH THE NIGHT AND O2 SATS MAINTAINING >90%. VSS, WILL CONTINUE TO MONITOR.
[2025-03-30 05:36] LABS: Bun/Creatinine Ratio 20.5 (12.0-20.0); Calcium, Blood 8.3 mg/dL (8.5-10.1); Creatinine, Blood 0.64 mg/dL (0.60-1.20); Magnesium, Blood 1.6 mg/dL (1.6-2.4); Phosphorus, Blood 2.8 mg/dL (2.5-4.9); Potassium, Blood 4.1 mmol/L (3.5-5.5)
[2025-03-30 07:18] VITALS: BP 126/70
--- NOTE | 2025-03-30 10:37 | NUR ---
DRAIN RUQ DRAIN RUQ DC'D PER MD ORDER. THREAD REMOVED AND DRAIN REMOVED INTACT. DRESSED WITH 4-4 FLUFFS AND TAPE. PT TOLERATED PROCEDURE WELL.
[2025-03-30 14:40] VITALS: BP 146/73
[2025-03-30] MEDS ORDERED: Sucralfate 1000MG / 10ML UD BTL PO SCH (16:30)
--- NOTE | 2025-03-30 17:59 | NUR ---
end of shift pt eating meal tray. antibiotics infusing right power port. denies complaints. will continue to monitor
[2025-03-30 19:39] VITALS: BP 127/65
--- NOTE | 2025-03-30 21:49 | NUR ---
RN TO ROOM TO ROUND; PT SLEEPING WITH EQUAL AND UNLABORED BREATHING. CONTINUOUS PULSE OX AND TELE MONITOR IN PLACE; CALL LIGHT WITHIN REACH.
[2025-03-31 00:55] VITALS: BP 133/72
[2025-03-31 04:43] VITALS: BP 130/71
--- NOTE | 2025-03-31 04:51 | NUR ---
SHIFT SUMMARY NO ACUTE CHANGES DURING SHIFT; PT ON ROOM AIR, TELE. PT MEDICATED FOR PAIN PER EMAR. PT USING URINAL THROUGHOUT SHIFT AND INDEPENDENT TO BSC FOR STOOL. PT LAST STOOL WAS MORE FORMED AND BROWN/GREEN IN COLOR. PT LAP SITES CDI. PT IRA DRAIN PULLED YESTERDAY AND DRESSING CDI.
[2025-03-31 07:12] VITALS: BP 137/69
[2025-03-31] MEDS ORDERED: OxyCODONE 5 mg/Acetamin 325 mg TABLET PO PRN (09:15)
[2025-03-31 10:05] LABS: BASOPHILS ABSOLUTE AUTO 0.05 K/mm3 (0.00-0.23); BASOPHILS PERCENT AUTO 1 % (0-2); EOSINOPHILS ABSOLUTE AUTO 0.84 K/mm3 (0.00-0.68); EOSINOPHILS PERCENT AUTO 8 % (0-6); Hematocrit 23.2 % (37.0-53.0); Hemoglobin 7.7 g/dL (13.5-17.5); IMMATURE GRAN ABSOLUTE AUTO 0.16 K/mm3 (0.00-0.10); IMMATURE GRAN PERCENT AUTO 2 % (0-1); LYMPHOCYTES ABSOLUTE AUTO 1.61 K/mm3 (0.84-5.20); LYMPHOCYTES PERCENT AUTO 16 % (21-46); MONOCYTES ABSOLUTE AUTO 0.97 K/mm3 (0.16-1.47); MONOCYTES PERCENT AUTO 9 % (4-13); Mean Corpuscular HGB 29.7 pg (26.0-34.0); Mean Corpuscular HGB Conc 33.2 g/dL (31.5-36.5); Mean Corpuscular Volume 90 fL (80-100); Mean Platelet Volume 8.7 fL (9.1-12.4); NEUTROPHILS ABSOLUTE AUTO 6.76 K/mm3 (1.96-9.15); NEUTROPHILS PERCENT AUTO 65 % (41-73); Platelet Count 664 K/mm3 (150-400); RDW Coefficient Variation 15.9 % (11.7-14.2); RDW Standard Deviation 51.9 fL (35.1-46.3); Red Blood Cell Count 2.59 M/mm3 (4.30-5.90); White Blood Cell Count 10.39 K/mm3 (4.00-11.30)
[2025-03-31 10:27] LABS: Albumin, Blood 2.2 g/dL (3.4-5.0); Albumin/Globulin Ratio 0.6 (0.8-1.8); Bilirubin, Total 0.6 mg/dL (0.1-1.0); Bun/Creatinine Ratio 15.4 (12.0-20.0); Calcium, Blood 8.4 mg/dL (8.5-10.1); Creatinine, Blood 0.59 mg/dL (0.60-1.20); Globulin, Blood 3.7 g/dL (2.2-4.0); Potassium, Blood 3.9 mmol/L (3.5-5.5); Total Protein, Blood 5.9 g/dL (6.4-8.2)
[2025-03-31 11:03] VITALS: BP 150/76
[2025-03-31 14:53] VITALS: BP 136/74
--- NOTE | 2025-03-31 18:04 | NUR ---
SHIFT SUMMARY PT TOLERATING FULL LIQUID DIET. PAIN CONTROLLED WELL, TRANSITIONED FROM IV TO PO PAIN MANAGEMENT. INCISION SITES WNL, NO DRAINAGE. SOFT DARK BROWN STOOLS. INDEPENDENT TO COMMODE. HOPEFUL TO DC HOME TOMORROW.
--- NOTE | 2025-03-31 19:43 | NUR ---
REPORT FROM LUIS ROBLERO AND SN ALEX. RN TO ROOM TO ROUND. PT ON PHONE WITH EQUAL AND UNLABORED BREATHS. CALL LIGHT WITHIN REACH.
[2025-03-31 20:11] VITALS: BP 153/76
[2025-04-01] VITALS (7 sets, daily range): BP systolic 119–152; BP diastolic 55–81
--- NOTE | 2025-04-01 02:53 | NUR ---
RN TO ROOM TO ROUND; PT SLEEPING WITH EQUAL AND UNLABORED BREATHS. CALL LIGHT WITHIN REACH.
[2025-04-01 05:18] LABS: BASOPHILS ABSOLUTE AUTO 0.05 K/mm3 (0.00-0.23); BASOPHILS PERCENT AUTO 1 % (0-2); EOSINOPHILS ABSOLUTE AUTO 0.76 K/mm3 (0.00-0.68); EOSINOPHILS PERCENT AUTO 9 % (0-6); Hematocrit 22.1 % (37.0-53.0); Hemoglobin 7.3 g/dL (13.5-17.5); IMMATURE GRAN PERCENT AUTO 1 % (0-1); LYMPHOCYTES PERCENT AUTO 22 % (21-46); MONOCYTES ABSOLUTE AUTO 0.93 K/mm3 (0.16-1.47); MONOCYTES PERCENT AUTO 11 % (4-13); Mean Corpuscular Volume 91 fL (80-100); Mean Platelet Volume 9.1 fL (9.1-12.4); NEUTROPHILS ABSOLUTE AUTO 4.55 K/mm3 (1.96-9.15); NEUTROPHILS PERCENT AUTO 56 % (41-73); Platelet Count 631 K/mm3 (150-400); RDW Coefficient Variation 15.8 % (11.7-14.2); Red Blood Cell Count 2.43 M/mm3 (4.30-5.90); White Blood Cell Count 8.19 K/mm3 (4.00-11.30)
--- NOTE | 2025-04-01 05:43 | NUR ---
SHIFT SUMMARY NO ACUTE EVENTS OVERNIGHT. PT MEDICATED FOR PAIN PER EMAR. 3X LAP SITES CDI, IRA PULLED 2 DAYS AGO AND SITE COVERED IN GUAZE/TAPE, CDI. PT INDEPENDENT TO BSC AND URINAL. MICHELE POWERGLIDE IS POSITIONAL WHEN PT LAYING ON RIGHT SIDE AND TKO FLUIDS WERE SWITCHED TO WALLY POWERGLIDE. PT TOLERATING FULL LIQUID DIET WITH NO C/O NAUSEA OR PAIN.
[2025-04-01 06:40] LABS: Triglycerides 106 mg/dL (30-160)
[2025-04-01 06:46] LABS: Albumin, Blood 2.1 g/dL (3.4-5.0); Albumin/Globulin Ratio 0.6 (0.8-1.8); Bilirubin, Total 0.5 mg/dL (0.1-1.0); Bun/Creatinine Ratio 9.5 (12.0-20.0); Calcium, Blood 8.1 mg/dL (8.5-10.1); Creatinine, Blood 0.63 mg/dL (0.60-1.20); Globulin, Blood 3.5 g/dL (2.2-4.0); Potassium, Blood 3.9 mmol/L (3.5-5.5); Total Protein, Blood 5.6 g/dL (6.4-8.2)
[2025-04-01] MEDS ORDERED: PANT40 PO (13:06)
[2025-04-01] MEDS ORDERED: Percocet 5-3251 EACH PO (13:06)
[2025-04-01 13:54] LABS: Hematocrit 27.2 % (37.0-53.0); Hemoglobin 8.9 g/dL (13.5-17.5)
--- NOTE | 2025-04-01 14:39 | NUR ---
DISCHARGE SUMMARY PT TOLERATING FLUIDS WELL. STATES PAIN CONTROLLED WELL, NO NAUSEA. INCISION SITES CLEAN, DRY, INTACT w/NO DRAINAGE. VSS, HRR. DISCHARGE INSTRUCTIONS REVIEWED AND GIVEN. VERBALIZED UNDERSTANDING TO COMPLETE LAB DRAW ON SUNDAY. ESCORTED OUT VIA WC.
== END 2025-04-01 14:18 | disposition home health service (06) | DRG 326 ==
LOC: ER 13:29 → SURS 17:33
PROVIDERS: Family Medicine; Internal Medicine; Student in an Organized Health Care Education/Training Program; Surgery; ADMIT Hospitalist
PROC: 0DQ94ZZ Repair Duodenum, Percutaneous Endoscopic Approach (ICD-10-PCS; 2025-03-22)
PROC: 0D9W4ZZ Drainage of Peritoneum, Percutaneous Endoscopic Approach (ICD-10-PCS; 2025-03-22)
PROC: 8E0W4CZ Robotic Assisted Procedure of Trunk Region, Percutaneous Endoscopic Approach (ICD-10-PCS; 2025-03-22)
PROC: 0D9670Z Drainage of Stomach with Drainage Device, Via Natural or Artificial Opening (ICD-10-PCS; 2025-03-23)
PROC: 30233N1 Transfusion of Nonautologous Red Blood Cells into Peripheral Vein, Percutaneous Approach (ICD-10-PCS; principal; 2025-03-25)
PROC: 3E0336Z Introduction of Nutritional Substance into Peripheral Vein, Percutaneous Approach (ICD-10-PCS; 2025-03-26)
DX: K26.2 Acute duodenal ulcer with both hemorrhage and perforation (principal); K65.0 Generalized (acute) peritonitis; K75.0 Abscess of liver; I69.851 Hemiplegia and hemiparesis following other cerebrovascular disease affecting right dominant side; D62 Acute posthemorrhagic anemia; Z59.811 Housing instability, housed, with risk of homelessness; R18.8 Other ascites; J44.9 Chronic obstructive pulmonary disease, unspecified; I10 Essential (primary) hypertension; E78.5 Hyperlipidemia, unspecified; M10.9 Gout, unspecified; F32.9 Major depressive disorder, single episode, unspecified; I25.10 Atherosclerotic heart disease of native coronary artery without angina pectoris; M19.90 Unspecified osteoarthritis, unspecified site; M79.89 Other specified soft tissue disorders; R54 Age-related physical debility; I25.2 Old myocardial infarction; Z87.19 Personal history of other diseases of the digestive system; Z87.891 Personal history of nicotine dependence; Z79.899 Other long term (current) drug therapy; Z79.82 Long term (current) use of aspirin; Z59.86 Financial insecurity
CPT/HCPCS: 36415; 36416; 36430; 71045; 74174; 74177; 74240; 80048; 80053; 82947; 83605; 83690; 83735; 83880; 84100; 84145; 84478; 84484; 85007; 85014; 85018; 85025; 85027; 85610; 86850; 86900; 86901; 86923; 87040; 93005; 93010; 93971; 94640; 94664; 94760; 94762; 96374-59; 96375; 99285-25; A9270; C1751; J0330; J0780; J1171; J1450; J1650; J2405; J2470; J2543; J2704; J3010; J3480; J7030; J7040; J7050; J7060; J7120; P9016; Q9967

== ENCOUNTER 2025-05-14 18:44 | Inpatient (IN) | payer OTHER ==
[~2025-05-14] VITALS: Ht 167.6 cm; Wt 60.2 kg
[~2025-05-14 18:44] MED LIST changes: +8 HOUR ACETAMI650 MG PO; +ATOR40TA PO; +Aspir 8181 MG PO; +FISH OIL 1,4001 EAC2 PO; +GILTUSS TR PO; +LORA10ER PO; +PANT40 PO; +Percocet 5-3251 EACH PO; +TART CHERRY400 MG PO
[2025-05-14] MEDS ORDERED: Ondansetron HCl 2 MG / ML 2ML Vial IV PRN (18:55)
[2025-05-14 19:06] LABS: Source, Urine Clean Catch
[2025-05-14 19:08] LABS: Appearance, Urine Clear (Clear); Bilirubin, Urine Neg (Neg); Blood, Urine Neg (Neg); Color, Urine Yellow (P-Yellow); Glucose Qualitative, Urine Neg (Neg); Ketones, Urine Neg (Neg); Leukocyte Esterase, Urine Neg (Neg); Nitrite, Urine Neg (Neg); Protein, Urine 1+ (Neg); Specific Gravity, Urine 1.015 (1.003-1.022); Urobilinogen, Urine NORM (Normal)
[2025-05-14 19:21] LABS: BASOPHILS ABSOLUTE AUTO 0.05 K/mm3 (0.00-0.23); BASOPHILS PERCENT AUTO 0 % (0-2); EOSINOPHILS ABSOLUTE AUTO 0.16 K/mm3 (0.00-0.68); EOSINOPHILS PERCENT AUTO 1 % (0-6); Hemoglobin 11.8 g/dL (13.5-17.5); IMMATURE GRAN PERCENT AUTO 1 % (0-1); LYMPHOCYTES ABSOLUTE AUTO 0.65 K/mm3 (0.84-5.20); LYMPHOCYTES PERCENT AUTO 5 % (21-46); MONOCYTES ABSOLUTE AUTO 0.91 K/mm3 (0.16-1.47); MONOCYTES PERCENT AUTO 6 % (4-13); Mean Corpuscular HGB 26.3 pg (26.0-34.0); Mean Corpuscular HGB Conc 31.9 g/dL (31.5-36.5); Mean Corpuscular Volume 83 fL (80-100); NEUTROPHILS ABSOLUTE AUTO 12.68 K/mm3 (1.96-9.15); NEUTROPHILS PERCENT AUTO 87 % (41-73); RDW Standard Deviation 45.4 fL (35.1-46.3); Red Blood Cell Count 4.48 M/mm3 (4.30-5.90); White Blood Cell Count 14.55 K/mm3 (4.00-11.30)
[2025-05-14 19:28] LABS: Albumin, Blood 3.6 g/dL (3.4-5.0); Albumin/Globulin Ratio 0.9 (0.8-1.8); Bilirubin, Total 1.4 mg/dL (0.1-1.0); Bun/Creatinine Ratio 28.4 (12.0-20.0); Calcium, Blood 9.2 mg/dL (8.5-10.1); Creatinine, Blood 0.74 mg/dL (0.60-1.20); Potassium, Blood 3.6 mmol/L (3.5-5.5); Total Protein, Blood 7.6 g/dL (6.4-8.2)
[2025-05-14] MEDS ORDERED: NS 1,000 ML IV SCH (21:30)
[2025-05-14 23:45] LABS: International Normalized Ratio 1.12; Prothrombin Time Results 12.2 Sec (9.7-11.5)
[2025-05-15] VITALS (8 sets, daily range): BP systolic 100–136; BP diastolic 49–73
[2025-05-15 00:23] LABS: BASOPHILS ABSOLUTE AUTO 0.03 K/mm3 (0.00-0.23); BASOPHILS PERCENT AUTO 0 % (0-2); EOSINOPHILS ABSOLUTE AUTO 0.01 K/mm3 (0.00-0.68); EOSINOPHILS PERCENT AUTO 0 % (0-6); Hematocrit 32.8 % (37.0-53.0); Hemoglobin 10.5 g/dL (13.5-17.5); IMMATURE GRAN PERCENT AUTO 1 % (0-1); LYMPHOCYTES ABSOLUTE AUTO 0.55 K/mm3 (0.84-5.20); LYMPHOCYTES PERCENT AUTO 4 % (21-46); MONOCYTES ABSOLUTE AUTO 0.56 K/mm3 (0.16-1.47); MONOCYTES PERCENT AUTO 4 % (4-13); Mean Corpuscular HGB 26.8 pg (26.0-34.0); Mean Corpuscular Volume 84 fL (80-100); NEUTROPHILS ABSOLUTE AUTO 13.09 K/mm3 (1.96-9.15); NEUTROPHILS PERCENT AUTO 91 % (41-73); Platelet Count 190 K/mm3 (150-400); RDW Coefficient Variation 15.3 % (11.7-14.2); RDW Standard Deviation 46.5 fL (35.1-46.3); Red Blood Cell Count 3.92 M/mm3 (4.30-5.90); White Blood Cell Count 14.34 K/mm3 (4.00-11.30)
[2025-05-15] MEDS ORDERED: Dose Adjust by Pharmacy XX STA ×3 (00:30→16:18)
[2025-05-15] MEDS ORDERED: Heparin Sodium,Porcine/0.5 NS 500 ML IV SCH (00:35)
[2025-05-15] MEDS ORDERED: Acetaminophen 325 MG TABLET PO PRN ×2 (02:00→20:25)
[2025-05-15] MEDS ORDERED: Ondansetron HCl 2 MG / ML 2ML Vial IV PRN (02:00)
[2025-05-15 02:37] LABS: BASOPHILS ABSOLUTE AUTO 0.03 K/mm3 (0.00-0.23); BASOPHILS PERCENT AUTO 0 % (0-2); EOSINOPHILS PERCENT AUTO 0 % (0-6); Hematocrit 32.5 % (37.0-53.0); Hemoglobin 10.1 g/dL (13.5-17.5); IMMATURE GRAN ABSOLUTE AUTO 0.09 K/mm3 (0.00-0.10); IMMATURE GRAN PERCENT AUTO 1 % (0-1); LYMPHOCYTES ABSOLUTE AUTO 0.64 K/mm3 (0.84-5.20); LYMPHOCYTES PERCENT AUTO 5 % (21-46); MONOCYTES ABSOLUTE AUTO 0.58 K/mm3 (0.16-1.47); MONOCYTES PERCENT AUTO 4 % (4-13); Mean Corpuscular HGB 26.7 pg (26.0-34.0); Mean Corpuscular HGB Conc 31.1 g/dL (31.5-36.5); Mean Corpuscular Volume 86 fL (80-100); Mean Platelet Volume 9.9 fL (9.1-12.4); NEUTROPHILS PERCENT AUTO 90 % (41-73); Platelet Count 229 K/mm3 (150-400); RDW Coefficient Variation 15.3 % (11.7-14.2); RDW Standard Deviation 47.9 fL (35.1-46.3); Red Blood Cell Count 3.78 M/mm3 (4.30-5.90); White Blood Cell Count 13.84 K/mm3 (4.00-11.30)
[2025-05-15 03:01] LABS: Albumin, Blood 3.1 g/dL (3.4-5.0); Albumin/Globulin Ratio 0.9 (0.8-1.8); Bilirubin, Total 1.5 mg/dL (0.1-1.0); Bun/Creatinine Ratio 19.9 (12.0-20.0); Calcium, Blood 8.3 mg/dL (8.5-10.1); Creatinine, Blood 0.75 mg/dL (0.60-1.20); Globulin, Blood 3.5 g/dL (2.2-4.0); Magnesium, Blood 1.2 mg/dL (1.6-2.4); Potassium, Blood 3.6 mmol/L (3.5-5.5); Total Protein, Blood 6.6 g/dL (6.4-8.2)
--- NOTE | 2025-05-15 06:01 | NUR ---
SHIFT SUMMARY: PT ARRIVED TO FLOOR ~0300. PT IS PALE AND DYSPNEIC UPON ARRIVAL TO FLOOR. PT IS CURRENTLY ON 3L O2 SpO2 92%. HEPARIN GTT STARTED IN ED. TELE NSR 90s. RR ELEVATED AT 28. PT IS A&OX4. SBA TO TOILET WITH CANE. CALL LIGHT IS WITHIN REACH. BED IS LOW AND LOCKED.
[2025-05-15] MEDS ORDERED: Magnesium Sulf 2 GM/Water 50ML 50 ML IV ONE (06:50)
[2025-05-15] MEDS ORDERED: NS 250 ML IV PRN (10:40)
[2025-05-15] MEDS ORDERED: NS 1,000 ML IV SCH (13:20)
--- NOTE | 2025-05-15 17:44 | NUR ---
SHIFT SUMMARY CLIENT AOX4. RAN A FEVER OF 102.6 1000. TYLENOL GIVEN WITH GOOD RESULTS. BLOOD PRESSURE ALSO BEGAN TO RUN LOW (SYSTOLICBED IN LOW POSITION AND CALL LIGHT IS WITHIN REACH IN LOW 100'S). RECEIVED ORDER FOR NORMAL SALINE IV @ 75ML/HR. BLOOD PRESSURE AT 1550 WAS 135/70. TELE STRIP FROM 06 SHOWED SINUS RYTHM @ 79. IV IN RIGHT FOREARM IS RUNNING HEPARIN @ 14 UN/KG/HR. IV IN LEFT UPPER ARM IN RUNNING SALINE @ 75ML.
[2025-05-15] MEDS ORDERED: CefTRIAXone Sodium 1,000 MG in NS 100 ML IV SCH (20:16)
[2025-05-15] MEDS ORDERED: Tiotropium Bromide 2.5 MCG/ACT MIST INHAL (10 ACT/4 GM) INH SCH (20:35)
[2025-05-15] MEDS ORDERED: Albuterol 2.5 MG/3 ML VIAL INH PRN (20:35)
[2025-05-15] MEDS ORDERED: Formoterol/Mometasone MDI 5/100 mcg 13 GM INH SCH (20:40)
[2025-05-15] MEDS ORDERED: Pantoprazole Sodium 40 MG Tab PO SCH (21:00)
[2025-05-15] MEDS ORDERED: Montelukast Sodium 10 MG Tab PO SCH (21:00)
[2025-05-16] VITALS (7 sets, daily range): BP systolic 120–149; BP diastolic 58–73
[2025-05-16] MEDS ORDERED: Dose Adjust by Pharmacy XX STA ×4 (00:12→15:30)
--- NOTE | 2025-05-16 05:09 | NUR ---
SHIFT SUMMARY PT A&Ox4. PT HAD TEMPERATURE OF 102.5 AT START OF SHIFT. TYLENOL GIVEN, ICE PACKS APPLIED UNDER ARMS, AND EXTRA BLANKETS REMOVED. TEMP INCREASED TO [address] CALLED AND NO INTERVENTIONS GIVEN AT THE TIME BUT TYELONL FREQUENCY CHANGED FROM Q6 TO Q4. CONTINUED APPLYING ICE ON AND OFF. IV ABX GIVEN PER EMAR AT 2000 AND FEVER FINALLY RESOLVED. TYELNOL GIVEN IN THE MORNING FOR ANOTHER SLIGHT TEMP OF 100.8 WITH GOOD EFFECT. NS INFUSING AT 75ml/hr. CONTINUING HEPARIN PER PHARMACY AND RATE CURRENTLY RUNNING AT 15u/kg. PT REAMINS ON 3L OF OXYGEN. LEFT LEG RED AND WARM, OUTLINED WITH MARKER AND DOPPLER USED TO FIND FAINT PEDAL PULSE. PT REPORTS LEG HAS BEEN RED SINCE ABD SURGERY ABOUT A MONTH AGO AND HE HAS BEEN WEARING COMPRESSION SOCKS. PER TELE, PT HAD A 9 BEAT RUN OF SVT BUT OTHERWISE HAS BEEN SR IN THE 90's. BLOOD PRESSURE STABLE. BED IN LOWEST POSITION AND CALL LIGHT IN REACH.
[2025-05-16 07:14] LABS: Hematocrit 32.1 % (37.0-53.0); Hemoglobin 10.1 g/dL (13.5-17.5); Mean Platelet Volume 10.5 fL (9.1-12.4); Platelet Count 186 K/mm3 (150-400)
[2025-05-16] MEDS ORDERED: Atorvastatin 40 MG Tab PO SCH (09:00)
[2025-05-16] MEDS ORDERED: Loratadine 10 MG Tab PO SCH (09:00)
[2025-05-16] MEDS ORDERED: Omega-3 Acid Ethyl Esters 1,000 MG CAP PO SCH (09:00)
[2025-05-16] MEDS ORDERED: IPRAT-ALBUT 0.5-3 ML INH (10:52)
[2025-05-16] MEDS ORDERED: Ipratropium/Albuterol SulF 2.5-0.5MG/3 ML Amp INH PRN (11:15)
--- NOTE | 2025-05-16 17:21 | NUR ---
SHIFT SUMMARY PT AOX4, CALLS TO MAKE HIS NEEDS KNOWN. TEMPERATURE ELEVATED THIS SHIFT, MEDICATED PER THE EMAR. NO OTHER ACUTE COMPLAINTS, PT STATES HE FEELS BETTER TODAY THAN YESTERDAY. HEPARIN DRIP INFUSING. NS INFUSING. PT USES THE URINAL INDEPENDENTLY. REPOSITIONS SELF IN BED. NO EVENTS PER TELE. CALL LIGHT WITHIN REACH, BED LOCKED AND IN THE LOWEST POSITION. WILL REPORT TO ONCOMING NURSE.
[2025-05-16] MEDS ORDERED: Clarify Drug Order XX ONE (21:40)
[2025-05-17 04:20] VITALS: BP 134/68
--- NOTE | 2025-05-17 05:05 | NUR ---
SHIFT SUMMARY PT HAS BEEN RESTING IN BED COMFORTABLY OVERNIGHT. PT HERE FOR PE. HE HAS BEEN AOX4, CALM AND COOPERATIVE. HE HAS CALLED APPROPRIATELY. PT HAS BEEN ON 2LNC. HE HAS ALSO BEEN ON TELEMETRY, NO EVENTS OVERNIGHT. PT IS SBA TO RESTROOM, BUT HAS MOSTLY USED URINAL IN BED. PT HAS BEEN ON HEPARIN GTT FOR PE. PT HAS REDNESS AND SWELLING IN LLE THAT HAS BEEN OUTLINED. PT HAS HAD NO COMPLAINTS, AND PT HAD UNEVENTFUL NIGHT.
[2025-05-17 06:11] LABS: Hematocrit 29.1 % (37.0-53.0); Hemoglobin 9.3 g/dL (13.5-17.5); Mean Platelet Volume 10.9 fL (9.1-12.4); Platelet Count 172 K/mm3 (150-400)
[2025-05-17 07:31] VITALS: BP 137/67
--- NOTE | 2025-05-17 07:51 | NUR ---
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 NO NEW ORDERS AT THIS TIME. PT IS ASYMPTOMATIC.
[2025-05-17] MEDS ORDERED: Apixaban 5 MG Tab PO SCH (10:05)
[2025-05-17 10:38] LABS: BASOPHILS ABSOLUTE AUTO 0.01 K/mm3 (0.00-0.23); BASOPHILS PERCENT AUTO 0 % (0-2); EOSINOPHILS ABSOLUTE AUTO 0.04 K/mm3 (0.00-0.68); EOSINOPHILS PERCENT AUTO 1 % (0-6); Hematocrit 30.4 % (37.0-53.0); Hemoglobin 9.4 g/dL (13.5-17.5); IMMATURE GRAN ABSOLUTE AUTO 0.02 K/mm3 (0.00-0.10); IMMATURE GRAN PERCENT AUTO 0 % (0-1); LYMPHOCYTES ABSOLUTE AUTO 1.18 K/mm3 (0.84-5.20); LYMPHOCYTES PERCENT AUTO 23 % (21-46); MONOCYTES ABSOLUTE AUTO 0.43 K/mm3 (0.16-1.47); MONOCYTES PERCENT AUTO 8 % (4-13); Mean Corpuscular HGB 26.3 pg (26.0-34.0); Mean Corpuscular HGB Conc 30.9 g/dL (31.5-36.5); Mean Corpuscular Volume 85 fL (80-100); Mean Platelet Volume 10.2 fL (9.1-12.4); NEUTROPHILS ABSOLUTE AUTO 3.49 K/mm3 (1.96-9.15); NEUTROPHILS PERCENT AUTO 68 % (41-73); Platelet Count 175 K/mm3 (150-400); RDW Coefficient Variation 15.4 % (11.7-14.2); RDW Standard Deviation 47.6 fL (35.1-46.3); Red Blood Cell Count 3.58 M/mm3 (4.30-5.90); White Blood Cell Count 5.17 K/mm3 (4.00-11.30)
[2025-05-17 11:10] LABS: Albumin, Blood 2.4 g/dL (3.4-5.0); Albumin/Globulin Ratio 0.6 (0.8-1.8); Bilirubin, Total 0.4 mg/dL (0.1-1.0); Bun/Creatinine Ratio 9.2 (12.0-20.0); Calcium, Blood 8.3 mg/dL (8.5-10.1); Creatinine, Blood 0.65 mg/dL (0.60-1.20); Globulin, Blood 3.7 g/dL (2.2-4.0); Potassium, Blood 3.1 mmol/L (3.5-5.5); Total Protein, Blood 6.1 g/dL (6.4-8.2)
[2025-05-17 11:38] VITALS: BP 119/62
[2025-05-17] MEDS ORDERED: Potassium Chloride 20 MEQ TabCR PO ONE (15:40)
[2025-05-17 16:00] VITALS: BP 131/75
--- NOTE | 2025-05-17 18:02 | NUR ---
SHIFT SUMMARY PT AOX4, SBA TO THE BATHROOM. USES THE URINAL. NO ACUTE COMPLAINTS. SEE OTHER NOTE ABOUT EVENT PER TELE. CALLS AND MAKES HIS NEEDS KNOWN. SWITCHED TO ORAL XARELTO TODAY AND TOLERATING WELL. CALL LIGHT WITHIN REACH, BED LOCKED AND IN THE LOWEST POSITION. WILL REPORT TO ONCOMING NURSE.
[2025-05-17 19:07] VITALS: BP 146/82
[2025-05-17 23:36] VITALS: BP 151/78
--- NOTE | 2025-05-18 03:59 | NUR ---
SHIFT SUMMARY PATIENT IS ALERT AND ORIENTED. PATIENT HAS HAD NO ACUTE EVENTS THIS SHIFT. PATIENT HAS HAD NO COMPLAINTS OF SOB, NAUSEA, VOMITTING OR PAIN THIS SHIFT. PATIENT HAS HAD NO EVENTS ON TELE THIS SHIFT. PATIENT HAS BEEN ABLE TO MAKE NEEDS KNOWN. CALL LIGHT IN REACH. BED IN LOCKED AND LOWEST POSITION.
[2025-05-18 04:07] VITALS: BP 133/68
[2025-05-18 07:17] VITALS: BP 140/74
[2025-05-18 11:04] VITALS: BP 154/75
[2025-05-18 11:12] LABS: BASOPHILS ABSOLUTE AUTO 0.03 K/mm3 (0.00-0.23); BASOPHILS PERCENT AUTO 0 % (0-2); EOSINOPHILS ABSOLUTE AUTO 0.05 K/mm3 (0.00-0.68); EOSINOPHILS PERCENT AUTO 1 % (0-6); Hematocrit 34.4 % (37.0-53.0); IMMATURE GRAN ABSOLUTE AUTO 0.09 K/mm3 (0.00-0.10); IMMATURE GRAN PERCENT AUTO 1 % (0-1); LYMPHOCYTES ABSOLUTE AUTO 1.28 K/mm3 (0.84-5.20); LYMPHOCYTES PERCENT AUTO 19 % (21-46); MONOCYTES ABSOLUTE AUTO 0.76 K/mm3 (0.16-1.47); MONOCYTES PERCENT AUTO 11 % (4-13); Mean Corpuscular Volume 84 fL (80-100); NEUTROPHILS ABSOLUTE AUTO 4.66 K/mm3 (1.96-9.15); NEUTROPHILS PERCENT AUTO 68 % (41-73); RDW Coefficient Variation 15.4 % (11.7-14.2); RDW Standard Deviation 46.9 fL (35.1-46.3); Red Blood Cell Count 4.08 M/mm3 (4.30-5.90); White Blood Cell Count 6.87 K/mm3 (4.00-11.30)
[2025-05-18 11:21] LABS: Bun/Creatinine Ratio 9.5 (12.0-20.0); Calcium, Blood 9.1 mg/dL (8.5-10.1); Creatinine, Blood 0.63 mg/dL (0.60-1.20); Potassium, Blood 3.7 mmol/L (3.5-5.5)
[2025-05-18] MEDS ORDERED: ELIQUIS5 M2 PO (14:20)
[2025-05-18] MEDS ORDERED: DULERA 100 MCG/13 GM INH (14:21)
--- NOTE | 2025-05-18 14:43 | NUR ---
DISCHARGE PT AOX4, COOPERATIVE, ABLE TO MAKE NEEDS KNONW. PT HAS BEEN SBA, IND IN ROOM . TOLERATING IV AND PO MEDICATION. TELE DC'D BY THIS RN, IV DC'D BY MOTOR CHECKER. WENT OVER DC PAPERWORK WITH PT. [facility]
[2025-05-24] MEDS ORDERED: Apixaban 5 MG Tab PO SCH (09:00)
== END 2025-05-18 14:41 | disposition home health service (06) | DRG 176 ==
LOC: ER 18:44 → MEDS 18:45
PROVIDERS: Emergency Medicine; Family Medicine; Internal Medicine; Student in an Organized Health Care Education/Training Program; ADMIT Student in an Organized Health Care Education/Training Program
DX: I26.99 Other pulmonary embolism without acute cor pulmonale (principal); I69.351 Hemiplegia and hemiparesis following cerebral infarction affecting right dominant side; I10 Essential (primary) hypertension; E78.5 Hyperlipidemia, unspecified; I25.10 Atherosclerotic heart disease of native coronary artery without angina pectoris; F32.9 Major depressive disorder, single episode, unspecified; J44.9 Chronic obstructive pulmonary disease, unspecified; M10.9 Gout, unspecified; I48.91 Unspecified atrial fibrillation; E86.0 Dehydration; I25.2 Old myocardial infarction; E83.42 Hypomagnesemia; Z59.86 Financial insecurity; Z87.891 Personal history of nicotine dependence; Z79.891 Long term (current) use of opiate analgesic; Z98.890 Other specified postprocedural states; Z79.899 Other long term (current) drug therapy
CPT/HCPCS: 36415; 71046; 71260; 74177; 80048; 80053; 83605; 83690; 83735; 83880; 84484; 85014; 85018; 85025; 85049; 85379; 85520; 85610; 85730; 87040; 93005; 93010; 93306; 94640; 94664; 94760; 94762; 96361; 96365; 96375; 99285-25; A9270; G0378; J0696; J1644; J2405; J3475; J7030; J7050; Q9967

== ENCOUNTER 2025-09-08 06:59 | Day surgery (SDC) | payer OTHER ==
[~2025-09-08] VITALS: Ht 167.6 cm; Wt 63.8 kg
[~2025-09-08 06:59] MED LIST changes: +ALBU90OI INH; +BUDESONIDE-FO10.2 G2 INH; +CLOP75 PO; +DULERA 100 MCG/13 GM INH; +ELIQUIS5 M2 PO; +IPRAT-ALBUT 0.5-3 ML INH
[2025-09-08 07:37] VITALS: BP 142/87
[2025-09-08] MEDS ORDERED: Ipratropium/Albuterol SulF 2.5-0.5MG/3 ML Amp INH ONE (07:40)
[2025-09-08] MEDS ORDERED: FERSU300 (07:41)
[2025-09-08] MEDS ORDERED: TART CHERRY400 MG (07:42)
--- NOTE | 2025-09-08 07:55 | NUR ---
Ambulatory in Day Surgery W/ USE OF CANE. S/P CVA W/ RT SIDE WEAKNESS. Patient confirms NPO status and agrees with scheduled surgery EXCEPT FOR "SMALL SIP OF WATER" AT 0630 Pre-Op teaching done. Pt verbalizes understanding. History, Chart, Medications and Allergies reviewed before start of procedure. Patient States Post-Procedure ride home has been arranged.
--- NOTE | 2025-09-08 07:56 | NUR ---
LUNGS W/ INSPIRATORY AND EXPIRATORY WHEEZES THROUGHOUT LUNGS. PT W/ PRODUCTIVE COUGH. + COPD AND "A LITTLE BIT OF EMPHYSEMA". DENIES RECENT ILLNESS STATES HE HAS NOT USED ANY OF HIS INHALERS SINCE YESTERDAY. NOT SOB. DENIES O2 USE
[2025-09-08] MEDS ORDERED: Dexmedetomidine HCL 200 MCG / 2 ML ONE (08:01)
--- NOTE | 2025-09-08 09:36 | NUR ---
09/08/[address] SEE ANESTHESIA RECORDS.
[2025-09-08 09:52] VITALS: BP 83/61
[2025-09-08 10:13] VITALS: BP 96/66
--- NOTE | 2025-09-08 10:21 | NUR ---
Patient up to Ambulate independently. Gait steady PER BASELINE. PT USES A CANE FOR RIGHT SIDED WEAKNESS. DENIES FEELING DIZZY. Discharge instructions reviewed with patient. Patient verbalizes understanding. Copy given to patient to take home. Discharged via wheelchair to private car for ride home.
== END 2025-09-08 10:20 | disposition home or self-care (01) ==
LOC: ORSCMMR 06:59 → ORD 09:00 → ORSCMMR 09:00
PROVIDERS: Surgery
PROC: 0DB68ZZ Excision of Stomach, Via Natural or Artificial Opening Endoscopic (ICD-10-PCS; principal; 2025-09-08 09:00)
PROC: 0DB98ZX Excision of Duodenum, Via Natural or Artificial Opening Endoscopic, Diagnostic (ICD-10-PCS; principal; 2025-09-08 09:00)
DX: K26.5 Chronic or unspecified duodenal ulcer with perforation (principal); Z87.11 Personal history of peptic ulcer disease; J44.9 Chronic obstructive pulmonary disease, unspecified; I10 Essential (primary) hypertension; J45.909 Unspecified asthma, uncomplicated; F32.9 Major depressive disorder, single episode, unspecified; Z86.73 Personal history of transient ischemic attack (TIA), and cerebral infarction without residual deficits; I25.2 Old myocardial infarction; Z79.02 Long term (current) use of antithrombotics/antiplatelets; Z79.899 Other long term (current) drug therapy; Z87.891 Personal history of nicotine dependence; K44.9 Diaphragmatic hernia without obstruction or gangrene
CPT/HCPCS: 88305; 88342; J7120